=== PATIENT | male | born 1995 | race Two or more races ===

== ENCOUNTER 2016-10-11 23:47 | Emergency (ER) | payer OTHER ==
[~2016-10-11] VITALS: Ht 175.3 cm; Wt 64.4 kg
[2016-10-12 01:56] VITALS: BP 120/52
[2016-10-12] MEDS ORDERED: IBUPROFEN 600 MG TAB PO ONE (02:30)
== END 2016-10-12 02:54 | disposition home or self-care (01) ==
LOC: ER 23:47
DX: S46.912A Strain of unspecified muscle, fascia and tendon at shoulder and upper arm level, left arm, initial encounter (principal); X50.0XXA Overexertion from strenuous movement or load, initial encounter; Y93.89 Activity, other specified; Y99.0 Civilian activity done for income or pay; Y92.69 Other specified industrial and construction area as the place of occurrence of the external cause
CPT/HCPCS: 73030